=== PATIENT | male | born 1955 | race Caucasian/White ===

== ENCOUNTER 2017-11-16 01:51 | Emergency (ER) | payer BC, OTHER ==
[2017-11-16 02:21] LABS: #Eosinphils 0.2 thou/uL (0.0-0.7); #Lymphocytes 1.4 thou/uL (1.20-3.40); #Monocytes 0.5 thou/uL (0.11-0.59); #Neutrophils 3.8 thou/uL (1.40-6.50); %Basophils 0.8 % (0.0-1.0); %Eosinophils 2.9 % (0.0-10.0); %Monocytes 7.7 % (0.0-10.0); %Neutrophils 64.7 % (42.0-75.0); Hemoglobin 14.6 g/dL (14.0-18.0); Mean Corpuscular HGB CONC 32.2 g/dL (32.0-36.0); Mean Corpuscular Hemoglobin 27.6 pg (27.0-31.0); Mean Corpuscular Volume 85.7 fl (80.0-94.0); Mean Platelet Volume 9.6 fL (7.4-10.4); Platelet Count 121 thou/uL (130-400); RBC Distribution Width 12.4 % (11.5-14.5); Red Blood Cell (RBC) Count 5.28 mill/uL (4.70-6.10); White Blood Cell (WBC) Count 5.9 thou/uL (4.8-10.8)
[2017-11-16 02:31] LABS: PTT 30.3 SEC (22.9-36.1); Prothrombin Time 13.4 SEC (12.0-14.7)
[2017-11-16] MEDS ORDERED: Furosemide 20 MG/2 ML VIAL ONE (02:35)
[2017-11-16] MEDS ORDERED: cefTRIAXone\\ROCEPHIN 2 GM VIAL ONE (02:36)
[2017-11-16] MEDS ORDERED: Azithromycin 500 MG VIAL ONE (02:36)
[2017-11-16] MEDS ORDERED: Sodium Chloride 0.9% 250 ML 250 ML ONE (02:36)
[2017-11-16 02:40] LABS: CKMB 2.6 ng/mL (0-6.6); Troponin I Less than 0.010 ng/mL (< 0.028)
[2017-11-16 02:44] LABS: ALT (SGPT) 65 U/L (8-55); AST (SGOT) 31 U/L (5-34); Albumin 4.1 g/dL (3.5-5.0); Alkaline Phosphatase 75 U/L (40-150); Anion Gap 15 mmol/L (10-20); BUN (Urea Nitrogen) 17 mg/dL (8.4-25.7); Bilirubin, Total 0.6 mg/dL (0.2-1.2); CK (CPK) 61 U/L (30-200); Calc. Creatinine Clearance 0 mL/min (70-130); Calcium 9.4 mg/dL (7.8-10.44); Carbon Dioxide 24 mmol/L (22-29); Chloride 102 mmol/L (98-107); Estimated GFR-MDRD 82; Globulin 2.4 g/dL (2.4-3.5); Glucose 372 mg/dL (70-105); Potassium 3.2 mmol/L (3.5-5.1); Protein, Total 6.5 g/dL (6.0-8.3); Sodium 138 mmol/L (136-145)
[2017-11-16] MEDS ORDERED: Sodium Chloride 0.9% 100 ML ONE (02:46)
[2017-11-16 03:04] LABS: Bilirubin Negative (Negative); Blood, Urine Trace (Negative); Clarity Clear (Clear); Glucose, Urine (Dipstick) >=1000 mg/dL (Negative); Leukocyte Negative (Negative); Nitrite Negative (Negative); Protein, Urine (Dipstick) 100 mg/dL (Neg-Trace); Specific Gravity, Urine 1.015 (1.005-1.030); Urobilinogen 0.2 mg/dL (0.2-1.0); pH, Urine 5.5 (5.0-9.0)
[2017-11-16 03:11] LABS: Bacteria/HPF None Seen HPF (None Seen); Squamous Epithelial 0-3 HPF (0-3); WBC/HPF None Seen HPF (0-3)
[2017-11-16] MEDS ORDERED: Iopamidol 370 76% 100 ML VIAL ONE (09:00)
--- NOTE | 2017-11-16 09:27 | RAD ---
CHEST 1 VIEW: Date: 11/16/17 HISTORY: Shortness of breath. COMPARISON: Exam from 2013. FINDINGS: Heart size enlarged. Moderate pulmonary venous congestion, as well as some developing edema. Small ef fusion. No pneumothorax. IMPRESSION: Cardiomegaly and mild pulmonary edema. POS: [facility]
--- NOTE | 2017-11-16 12:08 | CT ---
PRELIMINARY REPORT/[facility]/EMERGENTY AFTER-HOURS PROCEDURE CT Angiography Chest With Intravenous Contrast CLINICAL HISTORY: 62 years old, male; Signs and symptoms; Dyspnea and shortness of breath and wheezing; Patient HX: SOB , awoke from sleep with marked dyspnea, pink frothy sputum. Smokes 2 packs a day. HX of heart failure , diabetes, prostate ca; Symptoms described as choking sensation, tightness, wheezing TECHNIQUE: Axial computed tomographic angiography images of the chest with intravenous contrast using pulmonary embolism protocol. All CT scans at this facility use one or more dose reduction techniques, viz.: aut omated exposure control; ma/kV adjustment per patient size (including targeted exams where dose is ma tched to indication; i.e. head); or iterative reconstruction technique. MIP reconstructed images were created and reviewed. Coronal reformatted images were created and revie wed. CONTRAST: 96 mL of ISOVUE 370 administered intravenously. COMPARISON: No relevant prior studies available. FINDINGS: Pulmonary arteries: Limited study due to motion, streak artifacts and suboptimal opacification of the pulmonary arteries; however there is no definite evidence of pulmonary embolism. Aorta: No acute findings. No thoracic aortic aneurysm. Lungs: Bilateral patchy groundglass opacities and interlobular septal and peribronchial thickening, l ikely related to pulmonary edema. Few small nonspecific nodular opacities. Pleural space: Trace pleural effusions. No pneumothorax. Heart: Mild cardiomegaly. Coronary calcifications. No pericardial. Thyroid: Thyroid nodules. Bones/joints: No acute fracture. Soft tissues: No acute findings. Lymph nodes: Multiple small and mildly enlarged hilar and mediastinal lymph nodes. Calcified granulom as. Upper abdomen: Partially visualized hepatosplenomegaly. IMPRESSION: Limited study. No definite evidence of pulmonary embolism. Pulmonary edema. Trace pleural effusions. Mild cardiomegaly. Coronary calcifications. Other findings above. Thank you for allowing us to participate in the care of your patient. Dictated and Authenticated by: Zheng Cardenas MD 11/16/2017 4:39 AM Central Time ([place] & [place]) FINAL REPORT CT ANGIOGRAM OF CHEST: Date: 11/16/17 COMPARISON: None. HISTORY: Shortness of breath and wheezing. FINDINGS: I agree with the preliminary report given by Giovany. The thyroid gland is heterogeneous and contains hy podense nodules, as well as calcifications, incompletely assessed/imaged on this examination. There are calcified nodes in the right hilum. There are multiple prominent nodes in the prevascular s pace measuring up to 1.2 cm short axis dimension. Enlarged right paratracheal node on image 23 measur es 1.4 cm short axis dimension. There is neto prominence in the subcarinal region measuring up to 1. 5 cm in short axis dimension. The spleen is enlarged, measuring 20.0 cm AP dimension. Minimal/trace pleural effusions noted bilaterally. No significant pericardial or mediastinal fluid. There is scattered atherosclerotic calcification of the aortic arch. There is extensive coronary jack rial calcification. Evaluation of the pulmonary arterial vasculature is suboptimal in the basis of suboptimal opacificati on. No central pulmonary embolism is evident. There is no pneumothorax seen on either side. Scattered subtle areas of ground-glass opacity are noted in the lingula and posterior left upper lobe , as well as the anterior and inferior aspect of the right upper lobe and in the right middle lobe. R espiratory motion artifact limits assessment of both lung bases. There is mild increased interstitial density in bilateral lung bases as well. The osseous structures demonstrate no worrisome lytic or blastic lesion. IMPRESSION: 1. Suboptimal assessment of the pulmonary arterial vasculature with no obvious central pulmonary emb olism. 2. Splenomegaly. 3. Scattered areas of ground-glass opacity and interstitial prominence with trace bilateral pleural effusions. Question pulmonary edema. 4. Nonspecific hilar and mediastinal lymphadenopathy. Follow-up imaging advised. POS: [facility]
== END 2017-11-16 03:28 | disposition short-term general hospital (02) ==
LOC: NAV ERS 01:51
DX: A41.9 Sepsis, unspecified organism (principal); J81.1 Chronic pulmonary edema; F17.200 Nicotine dependence, unspecified, uncomplicated; I25.2 Old myocardial infarction; E11.9 Type 2 diabetes mellitus without complications; I10 Essential (primary) hypertension; F17.210 Nicotine dependence, cigarettes, uncomplicated; Z79.84 Long term (current) use of oral hypoglycemic drugs; Z79.899 Other long term (current) drug therapy
CPT/HCPCS: 36415; 71045; 71275; 80053; 81003; 81015; 82550; 82553; 83605; 83880; 84484; 85025; 85610; 85730; 87040; 87086; 93005; 94760; 96365; 96374; 96375; J0456; J0696; J1940; J7050; J7620

== ENCOUNTER 2018-01-22 22:04 | Emergency (ER) | payer BC ==
[2018-01-22 22:33] LABS: #Basophils 0.1 thou/uL (0.0-0.2); #Eosinphils 0.2 thou/uL (0.0-0.7); #Lymphocytes 3.1 thou/uL (1.20-3.40); #Monocytes 0.6 thou/uL (0.11-0.59); #Neutrophils 3.3 thou/uL (1.40-6.50); %Basophils 1.2 % (0.0-1.0); %Eosinophils 3.4 % (0.0-10.0); %Lymphocytes 41.7 % (21.0-51.0); %Monocytes 8.6 % (0.0-10.0); %Neutrophils 45.2 % (42.0-75.0); Hemoglobin 14.3 g/dL (14.0-18.0); Mean Corpuscular HGB CONC 31.4 g/dL (32.0-36.0); Mean Corpuscular Volume 85.8 fL (78.0-98.0); Mean Platelet Volume 9.3 fL (7.4-10.4); Platelet Count 132 thou/uL (130-400); RBC Distribution Width 13.2 % (11.5-14.5); White Blood Cell (WBC) Count 7.3 thou/uL (4.8-10.8)
[2018-01-22] MEDS ORDERED: Nitroglycerin 50 MG/250 ML BOT 250 ML ONE (22:39)
--- NOTE | 2018-01-22 22:44 | RAD ---
RADIOGRAPH CHEST 1 VIEW: Date: 01/22/18 Time: 10:19 p.m. HISTORY: 62-year-old male with dyspnea. COMPARISON: 11/20/17. FINDINGS: Lordotic positioning. Previously demonstrated life support lines are no longer present. Diffuse engor gement of pulmonary vasculature. New finding of diffuse mild interstitial pulmonary densities bilater ally, which probably represent pulmonary interstitial edema. There is silhouetting of the left hemidi aphragm with air space opacity at the left base. IMPRESSION: 1. Evidence for congestive heart failure with pulmonary edema. 2. Left basilar air space density and/or left pleural effusion. BHARGAV [] POS: [facility]
[2018-01-22 22:46] LABS: Troponin I 0.021 ng/mL (< 0.028)
[2018-01-22 22:47] LABS: ALT (SGPT) 26 U/L (8-55); AST (SGOT) 20 U/L (5-34); Albumin 4.4 g/dL (3.5-5.0); Alkaline Phosphatase 113 U/L (40-150); Anion Gap 16 mmol/L (10-20); BUN (Urea Nitrogen) 16 mg/dL (8.4-25.7); Bilirubin, Total 1.8 mg/dL (0.2-1.2); Calc. Creatinine Clearance 0 mL/min (70-130); Calcium 9.4 mg/dL (7.8-10.44); Carbon Dioxide 25 mmol/L (22-29); Chloride 104 mmol/L (98-107); Estimated GFR-MDRD 47; Globulin 2.5 g/dL (2.4-3.5); Glucose 266 mg/dL (70-105); Potassium 3.8 mmol/L (3.5-5.1); Protein, Total 6.9 g/dL (6.0-8.3); Sodium 141 mmol/L (136-145)
[2018-01-22] MEDS ORDERED: Furosemide 40 MG/4 ML VIAL ONE (22:50)
== END 2018-01-22 23:00 | disposition short-term general hospital (02) ==
LOC: NAV ERS 22:04
DX: J96.90 Respiratory failure, unspecified, unspecified whether with hypoxia or hypercapnia (principal); I11.0 Hypertensive heart disease with heart failure; I50.9 Heart failure, unspecified; E11.9 Type 2 diabetes mellitus without complications; Z87.891 Personal history of nicotine dependence; I25.2 Old myocardial infarction; Z79.899 Other long term (current) drug therapy; Z79.84 Long term (current) use of oral hypoglycemic drugs
CPT/HCPCS: 71045; 80053; 83880; 84484; 85025; 93005; 94660; 96365; 96374; J1940

== ENCOUNTER 2018-02-16 05:36 | Emergency (ER) | payer BC, SELFPAY ==
[2018-02-16] MEDS ORDERED: Albuterol Sulfate 2.5 mg/3 ml Neb ONE (05:59)
[2018-02-16] MEDS ORDERED: Albuterol Sulfate 2.5 mg/0.5 ml Neb ONE ×2 (05:59→06:09)
[2018-02-16 06:14] LABS: #Basophils 0.1 thou/uL (0.0-0.2); #Eosinphils 0.1 thou/uL (0.0-0.7); #Lymphocytes 1.1 thou/uL (1.20-3.40); #Monocytes 0.5 thou/uL (0.11-0.59); #Neutrophils 5.1 thou/uL (1.40-6.50); %Basophils 0.9 % (0.0-1.0); %Eosinophils 1.9 % (0.0-10.0); %Lymphocytes 16.7 % (21.0-51.0); %Monocytes 6.6 % (0.0-10.0); Hemoglobin 13.4 g/dL (14.0-18.0); Mean Corpuscular Volume 84.1 fL (78.0-98.0); Mean Platelet Volume 9.9 fL (7.4-10.4); Platelet Count 127 thou/uL (130-400); RBC Distribution Width 12.5 % (11.5-14.5); Red Blood Cell (RBC) Count 5.15 mill/uL (4.70-6.10); White Blood Cell (WBC) Count 6.9 thou/uL (4.8-10.8)
[2018-02-16] MEDS ORDERED: Furosemide 40 MG/4 ML VIAL ONE (06:22)
[2018-02-16 06:35] LABS: ALT (SGPT) 28 U/L (8-55); AST (SGOT) 19 U/L (5-34); Albumin 4.2 g/dL (3.5-5.0); Alkaline Phosphatase 120 U/L (40-150); Anion Gap 16 mmol/L (10-20); BUN (Urea Nitrogen) 23 mg/dL (8.4-25.7); CKMB 1.5 ng/mL (0-6.6); Calc. Creatinine Clearance 0 mL/min (70-130); Calcium 9.5 mg/dL (7.8-10.44); Carbon Dioxide 23 mmol/L (22-29); Chloride 102 mmol/L (98-107); Estimated GFR-MDRD 47; Globulin 2.8 g/dL (2.4-3.5); Glucose 233 mg/dL (70-105); Lipase 13 U/L (8-78); Potassium 4.1 mmol/L (3.5-5.1); Sodium 137 mmol/L (136-145); Troponin I 0.022 ng/mL (< 0.028)
[2018-02-16] MEDS ORDERED: Nitroglycerin 2% Ointment 1 INCH/1 GM Packet ONE ×2 (06:54)
--- NOTE | 2018-02-16 08:35 | RAD ---
AP VIEW OF THE CHEST: INDICATION: Shortness of breath. COMPARISON: Prior study dated 01/25/18. FINDINGS: There is cardiomegaly with prominent pulmonary vascular congestion. There is a tiny right small pleu ral effusion. No pneumothorax is evident. Midline sternotomy changes are similar. IMPRESSION: Findings of moderate congestive heart failure. POS: [facility]
== END 2018-02-16 07:14 | disposition short-term general hospital (02) ==
LOC: NAV ERS 05:36
DX: J96.91 Respiratory failure, unspecified with hypoxia (principal); I10 Essential (primary) hypertension; I11.0 Hypertensive heart disease with heart failure; I50.9 Heart failure, unspecified; Z87.891 Personal history of nicotine dependence; I25.2 Old myocardial infarction; E11.9 Type 2 diabetes mellitus without complications; Z79.899 Other long term (current) drug therapy; Z79.84 Long term (current) use of oral hypoglycemic drugs
CPT/HCPCS: 36415; 71045; 80053; 82553; 83690; 83880; 84484; 85025; 85379; 93005; 94760; 96374; J1940; J7611

== ENCOUNTER 2018-07-06 19:14 | Emergency (ER) | payer BC, OTHER, SELFPAY ==
[2018-07-06] MEDS ORDERED: methylPREDNISolone Sod Succ/PF 125 MG/2 ML VIAL ONE (19:35)
[2018-07-06] MEDS ORDERED: Nitroglycerin 50 MG/250 ML BOT 250 ML ONE (19:35)
[2018-07-06] MEDS ORDERED: Magnesium Sulfate 2 GM/NS 0.9% 50 ML BAG ONE (19:35)
[2018-07-06 20:05] LABS: #Basophils 0.1 thou/uL (0.0-0.2); #Eosinphils 0.2 thou/uL (0.0-0.7); #Lymphocytes 1.6 thou/uL (1.20-3.40); #Monocytes 0.4 thou/uL (0.11-0.59); #Neutrophils 3.4 thou/uL (1.40-6.50); %Basophils 1.2 % (0.0-1.0); %Eosinophils 2.9 % (0.0-10.0); %Lymphocytes 28.7 % (21.0-51.0); %Monocytes 7.3 % (0.0-10.0); Hemoglobin 14.4 g/dL (14.0-18.0); Mean Corpuscular HGB CONC 30.8 g/dL (32.0-36.0); Mean Corpuscular Hemoglobin 26.8 pg (27.0-31.0); Mean Corpuscular Volume 86.8 fL (78.0-98.0); Mean Platelet Volume 9.1 fL (7.4-10.4); Platelet Count 166 thou/uL (130-400); RBC Distribution Width 12.6 % (11.5-14.5); Red Blood Cell (RBC) Count 5.37 mill/uL (4.70-6.10); White Blood Cell (WBC) Count 5.7 thou/uL (4.8-10.8)
[2018-07-06] MEDS ORDERED: Furosemide 40 MG/4 ML VIAL ONE (20:06)
--- NOTE | 2018-07-06 20:09 | RAD ---
PORTABLE AP CHEST X-RAY: 07/06/2018 HISTORY: Dyspnea. COMPARISON: 02/20/2018 FINDINGS: Post surgical changes related to median sternotomy are again noted. A single lead AICD device remain s in place. The cardiac silhouette does appear enlarged. There is pulmonary vascular congestion and increased perihilar interstitial density, suggesting pulmonary edema. There is question of a tiny r ight pleural effusion. No other interval change. IMPRESSION: Congestive heart failure and pulmonary edema. POS: [facility]
[2018-07-06 20:14] LABS: ALT (SGPT) 16 U/L (8-55); AST (SGOT) 14 U/L (5-34); Albumin 4.4 g/dL (3.5-5.0); Alkaline Phosphatase 217 U/L (40-150); Anion Gap 19 mmol/L (10-20); BUN (Urea Nitrogen) 28 mg/dL (8.4-25.7); Bilirubin, Total 0.6 mg/dL (0.2-1.2); CK (CPK) 42 U/L (30-200); Calc. Creatinine Clearance 0 mL/min (70-130); Calcium 9.7 mg/dL (7.8-10.44); Carbon Dioxide 22 mmol/L (22-29); Chloride 103 mmol/L (98-107); Estimated GFR-MDRD 39; Globulin 3.2 g/dL (2.4-3.5); Glucose 220 mg/dL (70-105); Lipase 20 U/L (8-78); Potassium 4.8 mmol/L (3.5-5.1); Protein, Total 7.6 g/dL (6.0-8.3); Sodium 139 mmol/L (136-145)
== END 2018-07-06 20:49 | disposition short-term general hospital (02) ==
LOC: NAV ERS 19:14
DX: J81.0 Acute pulmonary edema (principal); I16.1 Hypertensive emergency; I25.2 Old myocardial infarction; I10 Essential (primary) hypertension; Z87.891 Personal history of nicotine dependence; Z79.899 Other long term (current) drug therapy; Z79.84 Long term (current) use of oral hypoglycemic drugs
CPT/HCPCS: 71045; 80053; 82550; 83605; 83690; 84484; 85025; 93005; 94660; 94760; 96365; 96375; J1940; J2930; J3475

== ENCOUNTER 2018-11-23 20:29 | Emergency (ER) | payer SELFPAY ==
[2018-11-23] MEDS ORDERED: Sodium Chloride 0.9% 1,000 ML ONE (21:05)
[2018-11-23] MEDS ORDERED: Fluconazole 100 MG TAB ONE (21:27)
[2018-11-23 21:33] LABS: Band 3 % (5-11); Eosinophils 3 % (0-10); Hemoglobin 11.6 g/dL (14.0-18.0); Lymphocytes 51 % (21-51); MDiff Complete? YES; Mean Corpuscular HGB CONC 32.3 g/dL (32.0-36.0); Mean Corpuscular Hemoglobin 26.9 pg (27.0-31.0); Mean Corpuscular Volume 83.2 fL (78.0-98.0); Mean Platelet Volume 7.7 fL (7.4-10.4); Monocytes 11 % (0-10); Neutrophil 32 % (42-75); Platelet Count 53 thou/uL (130-400); Platelet Morphology Comment Appears Decreased; RBC Distribution Width 12.3 % (11.5-14.5); RBC Morphology Normal; White Blood Cell (WBC) Count 0.4 thou/uL (4.8-10.8)
[2018-11-23 21:37] LABS: ALT (SGPT) 21 U/L (8-55); AST (SGOT) 12 U/L (5-34); Albumin 3.2 g/dL (3.4-4.8); Alkaline Phosphatase 222 U/L (40-150); Anion Gap 16 mmol/L (10-20); BUN (Urea Nitrogen) 23 mg/dL (8.4-25.7); Bilirubin, Total 1.3 mg/dL (0.2-1.2); Calc. Creatinine Clearance 0 mL/min (70-130); Calcium 8.6 mg/dL (7.8-10.44); Carbon Dioxide 28 mmol/L (23-31); Chloride 85 mmol/L (98-107); Estimated GFR-MDRD 79; Glucose 363 mg/dL (80-115); Potassium 4.6 mmol/L (3.5-5.1); Protein, Total 5.2 g/dL (5.8-8.1); Sodium 124 mmol/L (136-145)
[2018-11-23 21:52] LABS: Lipase Less than 4 U/L (8-78)
== END 2018-11-23 22:24 | disposition home or self-care (01) ==
LOC: NAV ERS 20:29
DX: E86.0 Dehydration (principal); D70.9 Neutropenia, unspecified; B37.0 Candidal stomatitis; E11.9 Type 2 diabetes mellitus without complications; I25.2 Old myocardial infarction; I10 Essential (primary) hypertension; Z87.891 Personal history of nicotine dependence; Z79.82 Long term (current) use of aspirin; Z79.891 Long term (current) use of opiate analgesic; Z79.899 Other long term (current) drug therapy
CPT/HCPCS: 36415; 80053; 83690; 85025; 96360; J7050